=== PATIENT | male | born 1995 | race Caucasian/White ===

== ENCOUNTER 2020-10-17 22:23 | Emergency (ER) | payer SELFPAY ==
[~2020-10-17] VITALS: Ht 175.3 cm; Wt 113.6 kg
[2020-10-17] MEDS ORDERED: FLUO10CA24 PO (22:44)
[2020-10-17] MEDS ORDERED: RISP1TAB48 PO (22:44)
[2020-10-17 23:48] LABS: BASOPHILS % (AUTO) 0.6 % (0.0-2.0); EOSINOPHILS % (AUTO) 2.1 % (1.0-6.0); HEMATOCRIT 42.8 % (41-53); HEMOGLOBIN 14.7 g/dL (13.5-17.5); LYMPHOCYTES # (AUTO) 2.5 K/uL (1.0-4.8); LYMPHOCYTES % (AUTO) 24.7 % (22.0-44.0); MEAN CORPUSCULAR HEMOGLOBIN 30.3 pg (26.0-34.0); MEAN CORPUSCULAR HGB CONC 34.3 G/dL (31.0-37.0); MEAN CORPUSCULAR VOLUME 89 fL (80-100); MONOCYTES # (AUTO) 0.7 K/uL (0.1-1.0); MONOCYTES % (AUTO) 6.9 % (2.0-9.0); NEUTROPHILS # (AUTO) 6.6 K/uL (1.8-7.7); NEUTROPHILS % (AUTO) 65.7 % (40.0-70.0); PLATELET COUNT (AUTO) 307 K/uL (150-450); RED BLOOD CELL COUNT(AUTO) 4.83 MIL/uL (4.50-5.90); RED CELL DISTRIBUTION WIDTH 13.3 % (11.5-14.5)
[2020-10-18 00:04] LABS: CARBON DIOXIDE 27 mmol/L (22-29); CHLORIDE 104 mmol/L (98-107); POTASSIUM 3.7 mmol/L (3.5-5.1); SODIUM SERUM 141 mmol/L (136-145)
[2020-10-18 00:05] LABS: ANION GAP 10 mmol/L (8-16); CALCIUM, TOTAL 9.1 mg/dL (8.8-10.5); CREATININE 0.93 mg/dL (0.60-1.30); GLOMERULAR FILTR. RATE CALC > 60 mL/min (>60); GLUCOSE,RANDOM 100 mg/dL (70-110); UREA NITROGEN, BLOOD 12 mg/dL (7-18)
[2020-10-18 00:06] LABS: ALANINE AMINOTRANSFERASE 47 U/L (12-78); ALBUMIN 4.5 g/dL (3.4-5.0); ALKALINE PHOSPHATASE 118 U/L (46-116); ASPARTATE AMINOTRANSFERASE 18 U/L (15-37); BILIRUBIN,TOTAL 0.2 mg/dL (0.1-1.0); LIPASE 92 U/L (73-393)
[2020-10-18 00:45] VITALS: BP 128/79
[2020-10-18] MEDS ORDERED: MAG HYDROX/AL HYDROX/SIMETH ES 30 ML SUSPENSION UDCUP PO ONE (01:00)
[2020-10-18] MEDS ORDERED: FAMOTIDINE 20 MG TABLET PO ONE (01:00)
== END 2020-10-18 01:00 | disposition home or self-care (01) ==
LOC: EDBD 22:25 → EMS 22:25
DX: K29.70 Gastritis, unspecified, without bleeding (principal); J45.909 Unspecified asthma, uncomplicated; F20.9 Schizophrenia, unspecified
CPT/HCPCS: 80053; 83690; 85025; 99283; G0480